=== PATIENT | female | born 1945 | race Caucasian/White ===

== ENCOUNTER 2016-11-24 09:45 | Day surgery (SDC) | payer OTHER ==
[~2016-11-24] VITALS: Ht 149.9 cm; Wt 82.0 kg
[~2016-11-24 09:45] MED LIST: ZES20T PO
[2016-11-24] MEDS ORDERED: Propofol 10,000 mCg/mL 20 mL Inj ONE (09:46)
[2016-11-24 10:18] VITALS: BP 155/76; PULSE 87; RESP 16; O2SAT 98
[2016-11-24] MEDS ORDERED: LISI-567 PO (10:19)
[2016-11-24] MEDS: Lactated Ringer's 1,000 ML IV ONE ×2 (10:31→11:05)
[2016-11-24] MEDS ORDERED: Ondansetron 2 mg/mL 2 mL Inj IVPUSH PRN (10:35)
[2016-11-24] MEDS ORDERED: Lactated Ringer's 1,000 ML IV SCH (10:35)
[2016-11-24] MEDS ORDERED: MetoCLOpramide 5 mg/mL 2 mL Inj IVPUSH PRN (10:35)
--- NOTE | 2016-11-24 10:35 | PCM.HPANE ---
Patient Data Surgeon Admitting Provider: Attending Provider:Pranav Berumen MD Primary Care Physician:Ana So Other Provider:Perlita Thurman Anesthesia Reason for Visit Abdominal Pain Of Unkown Cause Ht/WT & BMI Height (Feet): 4 Height (Inches): 11 Weight (Kilograms): 82 Body Mass Index 36.00 Allergies Coded Allergies: Sulfa (Sulfonamide Antibiotics) (Verified Allergy, 10/15/10) Past Anesthesia History Anesthesia History: Denies:: Abnormal Airway, Anesthesia Reactions, Difficult Intubation, Fam Anesthesia Reaction, Fam Malignant Hypertherm, Malignant Hyperthermia Diabetes History Hx Diabetes?: No MRSA MRSA: No Medications Home Meds Incl Beta Beltran: No Reported Medications Lisinopril 20 Mg [id number] Mg PO DAILY 30 Days Ref 0 11/24/16 Discontinued Reported Medications Lisinopril-Expunged Drug, Do Not Renew! 20 Mg [id number] Mg PO DAILY 10/15/10 Metoprolol Suc-Expunged Drug, Do Not Renew! 100 Mg [id number] Mg PO DAILY 10/15/10 History History of ENT Problems?: Yes HEENT History: Positive for:: Cataracts (starting of cataracts) Dysphagia (RARELY, JUST HAS TO WASH DOWN) Denies:: Abnormal Airway Difficult Intubation Hearing Problem Sinus Problem Denture Type: Full- Upper Full- Lower Teeth Condition: Within Normal Limits Hx of Heart Problems?: Yes Cardiovascular History: Positive for:: Edema (swells with being up too long on feet) Hypertension Denies:: AICD Cardiac Surgery Chest Pain Congestive Heart Failure Heart Murmur Irregular Heartbeat Pacemaker Thrombophlebitis Valvular Heart Disease Hx of Respiratory Problem?: No Respiratory History: Denies:: Asthma COPD Chest Surgery Cough Dyspnea Emphysema Hemoptysis Pneumonia Tuberculosis Hx Neurologic Problems?: No Neurological History: Positive for:: Dizziness Denies:: Alzheimer's Disease CVA Dementia Headaches Parkinson's Disease Seizures Hx of GI Problems?: Yes Hx of Problems?: No Genitourinary History: Denies:: Kidney Stones Urinary Tract Infection Female Hx: Denies:: Currently Endometriosis Pelvic Inflammatory Problems with Breasts? Hx Musculoskeletal Problems?: Yes Musculoskeletal History: Positive for:: Back Injury (t12 fracture due to fall) Denies:: Fibromyalgia Joint Replacement Musculoskeletal Trauma Hx of Psycho/Social Problems?: No Psycho Social History: Denies:: Anxiety Bipolar Disorder Hx Depression Hx Surgeries?: Yes (INTESTINAL SURG X 2, KATE,HYSTERECTOMY, X2, HEMORRHOIDECTOMY) Hx Any Other Health Problems?: Yes Other History: Positive for:: Cancer (SKIN CANCER REMOVED FROM POSTERIOR HEAD) Hospitalization Denies:: Thyroid Disease History Blood Transfusions: Positive for:: Blood Transfusions Denies:: Blood Transfuse Reaction Hx Diabetes: No Hx Alcohol Use: Yes (once a year on vacation)Hx Substance Use: No Stop/Bang Treated for Sleep Apnea?: No Do You Have a CPAP Machine?: No S-Snoring: Do You Snore Loudly: Yes T-Tired: feel tired, fatigued: No O-Obsered: Observed not breath: No P-Blood Pressure: treated: Yes B- Body Mass Index > 35 kg/m2: Yes A- Age over 50: Yes N- Neck Large Circumference: Yes G- Gender Male: No CELINE Total Score: 5 CELINE Risk Assessment: High Risk, =/>3 Yes CELINE Category 2: Yes Risk Assessment Category Category 1A: Patient has history of documented sleep apnea, and HAS NOT received any narcotic, sedative or anesthesia administration during this stay. Category 1B: Patient has history of documented sleep apnea, and HAS received any narcotic , sedative or anesthesia administration during this stay Category 2: Patient has SUSPECTED Obstructive Sleep Apnea, and HAS received any narcotic , sedative or anesthesia administration during this stay. Category 3: Patient has SUSPECTED Obstructive Sleep Apnea and HAS NOT received narcotic, sedative or anesthesia administration during this stay. Category 4: Outpatient in Procedural Areas with known sleep apnea or who screen positive for High Risk via the STOP/BANG questionnaire. Exam Exam Vital Signs Vital Signs Date Time Temp Pulse Resp B/P Pulse Ox O2 Delivery O2 Flow Rate FiO2 11/24/16 10:18 36.9 87 16 155/76 98 Room Air General Appearance: Oriented X3 HEENT/AIRWAY: MP 3 Lungs: Normal Air Movement Heart: Regular Rate/Rhythm Meds/Labs/Diagnostics Admission Meds Current Medications Lactated Ringer's (Lr) 1,000 ml @ 10 mls/hr Q24H ONCE IV Last administered on 11/24/16t 10:31; Start 11/24/16 at 06:00; Stop 11/25/16 at 05:59 Plan Impression Patient chart reviewed, patient interviewed and anesthestic plan with risks, benefits, and alternatives discussed, and informed consent obtained. ASA Physical Status: ASA2 Mod Systemic Disease Anesthetic Plan: MAC Bene/Risks/Altern/Consents: Yes HP Complete Prior to Induction: Yes Kilo Sun MD Nov 24, 2016 10:35
[2016-11-24 11:20] VITALS: BP 143/70; PULSE 90; RESP 16; O2SAT 95
--- NOTE | 2016-11-24 11:20 | PCM.ENDEGD ---
EGD Date of Service: Nov 24, 2016 Physician Pranav Berumen MD Pre Procedure Diagnosis: Varices screening abdominal pain Post Procedure Dx & Findings: Portal hypertensive gastropathy erosive gastropathy Procedure Esophagogastroduodenoscopy PROCEDURE IN DETAIL: After proper sedation, Olympus video endoscope was inserted into patient's mouth and esophagus was successfully intubated. Scope introduced esophagus. Esophagus showed normal shiny whitish mucosa consistent with squamous cell component. Z line was intact at 36 cm from the incisors. There was a reddish spot however this washed off. Scope further advanced to the stomach. The fundus and the body showed snakeskin pattern mucosa consistent with portal hypertensive gastropathy. Antrum showed atrophy deformity as well as small erosions. Multiple biopsies obtained . Cardia fundus body antrum pylorus were all visualized. Retroflexion was done. Stomach was easily inflated and deflatable using air. Scope further events to the distal duodenum. Duodenum revealed normal villous structures with normal appearing folds without any mass ulcer erosion. Impression Portal hypertensive gastropathy Erosive gastropathy Recommendation Start [facility] Presedation Assessment Risks and Benefits Informed consent was obtained from the patient after all risks and benefits including but not limited to drug reaction, infection, pain, bleeding, perforation, as well as alternatives were discussed. Patient monitoring Continuous pulse oximetry, cardiac monitoring, blood pressure monitoring, IV access, and oxygen at 2L per nasal cannula. Complications There were no periprocedural complications identified. Post Procedure Plan Post Procedure Recommendations 1. Restrict activities today. 2. Resume normal activities in the morning. 3. Resume medications. 4. GERD behavioral modification: - Avoid fatty, acidic, spicy, large meals - Do not lie down after meals - Do not eat or drink anything for at least 2 1/2 hours before going to bed at night - Discontinue tobacco and alcohol - Decrease or avoid caffeine - Avoid chocolate and mints - Decrease weight - Avoid aspirin and non steroidal anti-inflammatory agents (NSAID) such as Aleve, Advil, Mobic, Naproxen, Ibuprofen, etc 5. Add proton pump inhibitor. Take 30 minutes before 1st meal of the day. 6. Patient informed of normal post procedure side effects as bloating, drowsiness, blood streaking in the stool 7. If gastric biopsy reveal H.pylori, continue with appropriate treatment 8. If small bowel biopsy reveals celiac, continue with appropriate treatment 9. Please don't hesitate to call me with any questions Pranav Berumen MD Nov 24, 2016 11:20
--- NOTE | 2016-11-24 11:22 | PCM.ENDCOL ---
Colonoscopy Physician Pranav Berumen MD Procedure Colonoscopy PROCEDURE IN DETAIL: Prep adequate Withdrawal time 12 minutes After unremarkable rectal examination the Olympus video colonoscope was inserted patient's anal canal and was advanced to cecum. Landmarks were identified including the ileocecal valve and appendiceal orifice. Scope was withdrawn systematically. Visualized colonic mucosa showed healthy shiny mucosa with normal healthy-appearing vasculature. In the transverse colon, there was a 3 mm polyp which was removed completely using cold snare. In the sigmoid colon there. Several small diverticuli. In the rectum retroflexion was done which showed hemorrhoids. Anal canal was inspected carefully on the way out and hemorrhoids noted. Impression Polyp 1 status post complete removal Diverticuli Hemorrhoids Recommendation Repeat colonoscopy 5 years Diverticular diet Presedation Assessment Risks and Benefits Informed consent was obtained from the patient after all risks and benefits including but not limited to drug reaction, infection, pain, bleeding, perforation, as well as alternatives were discussed. Patient monitoring Continuous pulse oximetry, cardiac monitoring, blood pressure monitoring, IV access, and oxygen at 2L per nasal cannula. Complications There were no periprocedural complications identified. Post Procedure Plan Post Procedure Recommendations 1. Restrict activities today. 2. Resume normal activities in the morning. 3. Resume medications. 4. Patient informed of normal post procedure side effects as bloating, drowsiness, blood streaking in the stool. 5. average risk CRCS. If colon polyps come back as: -Hyperplastic- can repeat colonoscopy in 10 years -Tubular adenoma- repeat colonoscopy in 5 years -Tubulovillous/villous adenoma- repeat colonoscopy in 3 years -If any dysplasia- return to clinic as soon as possible 6. Please don't hesitate to call me with any questions. Prnaav Berumen MD Nov 24, 2016 11:22
[2016-11-24 11:30] VITALS: BP 153/66; PULSE 72; RESP 16; O2SAT 99
[2016-11-24 11:40] VITALS: BP 137/57; PULSE 73; RESP 16; O2SAT 100
--- NOTE | 2016-11-24 12:19 | PCM.ANEP1 ---
Post Anesthesia PACU Phase 1 Assessment Vital Signs Vital Signs Date Time Temp Pulse Resp B/P Pulse Ox O2 Delivery O2 Flow Rate FiO2 11/24/16 11:40 73 16 137/57 100 Room Air 11/24/16 11:30 72 16 153/66 99 Room Air 11/24/16 11:20 90 16 143/70 95 Room Air 11/24/16 10:18 36.9 87 16 155/76 98 Room Air Anesthetic Administered: MAC Level of Alertness: Awake, talking Pain: No Nausea or Vomiting: No CV Function & Hydration Stable: Yes Airway Device: Lungs: Normal Air Movement PACU Phase 2 Assessment Patient Instructions Provided: N/A Kilo Sun MD Nov 24, 2016 12:19
--- NOTE | 2016-11-25 14:16 | PATH ---
SURGICAL PATHOLOGY Attending Physician:Pranav Berumen M.D. CASE STATUS: Signed Out PATIENT NAME: VANDA BAEZ PID: [id number] : 1945 DATE COLLECTED:11/24/2016 23:08 SPECIMEN: 1: Stomach, Antrum, Biopsy 2: Colon, Biopsy CLINICAL HISTORY: ABDOMINAL PAIN ULCER 1). ANTRUM BIOPSY 2). TRANSVERSE COLON POLYP FINAL DIAGNOSIS: 1.ANTRUM BIOPSY: MILD CHRONIC GASTRITIS INVOLVING ANTRAL MUCOSA. Negative for evidence of Helicobacter. Negative for intestinal metaplasia. Negative for dysplasia and malignancy. Negative for evidence of ulceration. 2.TRANSVERSE COLON POLYP: SESSILE SERRATED ADENOMA. ICD10 D12.3 GROSS DESCRIPTION: The specimen is received in two formalin filled containers labeled with the patient's name. 1). The specimen is sublabeled "antrum" and consists of 2 portions of tissue which aggregate to 0.3 x 0.3 x 0.2 CM. The specimen is entirely submitted in cassette 1A. 2). The specimen is sublabeled "transverse colon polyp" and consists of a 0.5 x 0.3 x 0.2 CM portion of tissue which is entirely submitted in cassette 2A. 11/24/2016 DAC MICRO DESCRIPTION: See diagnosis. ICD-9 CODES: CPT CODES: 1: 00010 2: 40202 Electronically Signed Out Samuel Gonzalez MD [facility] [address] [place] [address] Technical component performed at [facility], [facility] [address], [place], [address]
== END 2016-11-24 23:59 | disposition home or self-care (01) ==
LOC: END 09:45
PROVIDERS: ATTEND Internal Medicine
DX: Z12.11 Encounter for screening for malignant neoplasm of colon (principal); Z86.010 Personal history of colon polyps; D12.3 Benign neoplasm of transverse colon; K57.30 Diverticulosis of large intestine without perforation or abscess without bleeding; K64.9 Unspecified hemorrhoids; K29.50 Unspecified chronic gastritis without bleeding; K31.89 Other diseases of stomach and duodenum; K76.6 Portal hypertension; R10.13 Epigastric pain; I10 Essential (primary) hypertension; K21.9 Gastro-esophageal reflux disease without esophagitis; K74.60 Unspecified cirrhosis of liver; E66.9 Obesity, unspecified; Z90.710 Acquired absence of both cervix and uterus; Z68.38 Body mass index [BMI] 38.0-38.9, adult; Z85.828 Personal history of other malignant neoplasm of skin
CPT/HCPCS: 43239; 45385; J7120